=== PATIENT | female | born 1990 | race American Indian/Alaskan Native ===

== ENCOUNTER 2018-11-27 05:46 | Day surgery (SDC) | payer OTHER ==
[2018-11-27] MEDS ORDERED: NACL BACTERIOSTATIC INFILTRATI ONE (06:47)
[2018-11-27] MEDS ORDERED: LACTATED RINGERS 1,000 ML ONE (07:02)
[2018-11-27] MEDS ORDERED: XYLOCAINE 1% 20 mL ONE (07:10)
[2018-11-27] MEDS ORDERED: MARCAINE 0.25% INFILTRATI ONE ×3 (07:10→08:09)
[2018-11-27] MEDS ORDERED: MARCAINE-EPI 0.5%-1:200,000 INFILTRATI ONE (07:10)
[2018-11-27] MEDS ORDERED: DIPRIVAN 10 MG/ML IV ONE ×3 (07:22→07:32)
[2018-11-27] MEDS ORDERED: SUBLIMAZE ONE (07:22)
[2018-11-27] MEDS ORDERED: VERSED ONE (07:23)
[2018-11-27] MEDS ORDERED: ZEMURON IV ONE (07:27)
[2018-11-27] MEDS ORDERED: NEO SYNEPHRINE/NS Syringe(OR USE) IV ONE (07:27)
[2018-11-27] MEDS ORDERED: XYLOCAINE MPF 2% ONE (07:27)
[2018-11-27] MEDS ORDERED: ROBINUL ONE (07:27)
[2018-11-27] MEDS ORDERED: QUELICIN ONE (07:27)
[2018-11-27] MEDS ORDERED: ZOFRAN ONE (07:27)
[2018-11-27] MEDS ORDERED: DECADRON ONE (07:27)
[2018-11-27] MEDS ORDERED: VERSED IV NR (07:39)
[2018-11-27] MEDS ORDERED: LACTATED RINGERS 1,000 ML IV SCH (07:39)
[2018-11-27] MEDS ORDERED: ANCEF/STERILE WATER 2 GM/20 ML 2 GM/20 ML SYRINGE IV NR (08:00)
[2018-11-27] MEDS ORDERED: KETALAR ONE (08:04)
[2018-11-27] MEDS ORDERED: XYLOCAINE 1% 20 mL INFILTRATI ONE ×2 (08:09)
--- NOTE | 2018-11-27 08:38 | Short Stay Summary ---
Short Stay Documentation Date of service: 11/27/18 - History Principal diagnosis: left axillary cyst H&P: obtained from office - Allergies and Medications Current Medications: Allergies No Known Allergies Allergy (Verified 11/26/18 15:45) Home Medications Medication Instructions Recorded Confirmed Last Taken Type Amitriptyline [Elavil] 50 mg PO QHS 11/26/18 11/26/18 Unknown History Multivit-Min36/Iron/Folic Acid 1 each PO QDAY 11/26/18 11/26/18 Unknown History [Geritol Complete Tablet] Pnv No.133/Ferrous Fum/Folic [Cvs 1 each PO QDAY 11/26/18 11/26/18 Unknown History Vitamins Tablet] Active Medications Lactated Ringer's (Lactated Ringers) 1,000 mls @ 100 mls/hr IV DIRECT DEVAN Cefazolin Sodium (Ancef/Sterile Water 2 Gm/20 Ml) 2 gm in 20 mls @ 80 mls/hr IV PREOP NR; Protocol Stop: 11/27/18 20:00 Midazolam HCl (Versed) 2 mg IV ONCE NR Stop: 11/27/18 20:00 - Brief post op/procedure progress note Date of procedure: 11/27/18 Pre-op diagnosis: left axillary cyst Post-op diagnosis: same Procedure: excision of left axillary cyst Anesthesia: MAC, local Findings: 0.5 cm cyst of left axilla Surgeon: JANNIE FULTON Estimated blood loss: minimal Pathology: list (left axillary cyst) Specimen disposition: to lab Condition: stable - Hospital course Hospital course: Pt observed in PACU and discharged to home in stable condition. - Disposition Condition at discharge: Good Disposition: [id number] TO HOME OR SELFCARE Short Stay Discharge Plan Activity: no restrictions Diet: regular Wound: open to air, per your surgeon's advice Additional Instructions: SEE PRINTED DISCHARGE INSTRUCTIONS Follow up with: ANGELITA KHAN MD [Primary Care Provider] - 7 Days JANNIE FULTON DO [Staff Physician] - 14 Days Prescriptions: Ibuprofen [Motrin 800 MG tab] 800 mg PO Q8HR PRN #30 tablet PRN Reason: Pain , Severe (7-10)
--- NOTE | 2018-11-27 09:26 | Anesthesia Consultation ---
Anesthesia Consult and Med Hx - Airway Anesthetic Teeth Evaluation: Good ROM Head & Neck: Adequate Mental/Hyoid Distance: Adequate Mallampati Class: Class I - Pulmonary Exam CTA: Yes - Cardiac Exam Cardiac Exam: RRR - Pre-Operative Health Status ASA Pre-Surgery Classification: ASA2 (hx of migraines ) Proposed Anesthetic Plan: MAC - Pulmonary Hx Smoking: No - Cardiovascular System Hx Hypertension: No - Other Systems Hx Alcohol Use: Yes Hx Substance Use: No
--- NOTE | 2018-11-27 09:27 | Anesthesia Day of Surgery ---
Anesthesia Day of Surgery - Day of Surgery Patient Examined: Yes Patient H&P Reviewed: Yes Patient is NPO: Yes
[2018-11-27 10:03] VITALS: BP 137/88
--- NOTE | 2018-11-27 13:22 | Post Anesthesia Evaluation ---
- Post Anesthesia Evaluation Patient Participated: Yes Airway Patent: Yes Stable Respiratory Function: Yes Nausea/Vomiting: No Temp > 96.8F: Yes Pain Manageable: Yes Adequeate Hydration: Yes Anesthesia Complications: No Block Receding Appropriately: Not Applicable Patient on Ventilator: No
--- NOTE | 2018-11-28 17:01 | Operative Report ---
PREOPERATIVE DIAGNOSIS: Left axillary cyst. POSTOPERATIVE DIAGNOSIS: Left axillary cyst. PROCEDURE: Excision of left axillary cyst. ANESTHESIA: MAC local. FINDINGS: 0.5 cm cyst of left axilla. SURGEON: Sil Blount DO ESTIMATED BLOOD LOSS: Minimal. PATHOLOGY: Left axillary cyst. SPECIMEN DISPOSITION: To lab. CONDITION DISPOSITION: The patient is stable to PACU. HISTORY OF PRESENT ILLNESS AND INDICATION: The patient is a 28-year-old female who had presented to the office in 09/2018 with an infected left axillary cyst. She underwent incision and drainage of the cyst and was treated with antibiotics. The patient did well and wound healed without difficulty. The excision of the cyst was discussed with the patient and she wanted to proceed. All risks, benefits and alternatives to surgery were discussed with the patient and consent obtained. PROCEDURE IN DETAIL: The patient was identified in the preoperative area and taken back to the operating room and placed on the operating table in supine position. The left axilla was verified as marked and the left arm was abducted. The axilla was prepped and draped in usual sterile fashion and a timeout was performed. The skin was anesthetized with local anesthetic. An elliptical incision was made using a 15 blade around the cyst opening. The dissection was carried down through the skin and subcutaneous tissues using Bovie electrocautery until the subcutaneous tissue was identified. Using blunt dissection, the cyst was carefully dissected from the surrounding tissue circumferentially and was then transected off the underlying subcutaneous tissue using electrocautery. The cyst was small and measured approximately 0.5 cm. The incision was approximately 1 cm. The wound was then irrigated and hemostasis was achieved using electrocautery. The cyst was passed off the table as specimen. Once hemostasis was ensured, the incision was closed with 4-0 Monocryl subcuticular stitches and skin glue. At the end of the case, all sponge, instrument, sharp counts were correct x 2. The patient was awoken from anesthesia and taken to PACU in stable condition. JOB# [id number] NK/LIDA
== END 2018-11-27 09:35 | disposition home or self-care (01) ==
LOC: OR 05:46
PROVIDERS: ATTEND Surgery
DX: L72.0 Epidermal cyst (principal); G43.909 Migraine, unspecified, not intractable, without status migrainosus; F41.9 Anxiety disorder, unspecified; Z72.89 Other problems related to lifestyle; Z79.899 Other long term (current) drug therapy; Z98.890 Other specified postprocedural states; Z80.3 Family history of malignant neoplasm of breast; Z80.41 Family history of malignant neoplasm of ovary
CPT/HCPCS: 11400; 81025; 88304; J0330; J0690; J1100; J2250; J2370; J2405; J2704; J3010; J7120